=== PATIENT | male | born 2000 | race Caucasian/White ===

== ENCOUNTER 2021-09-23 20:05 | Emergency (ER) | payer BC, SELFPAY ==
--- NOTE | ~2021-09-23 | CT_ITS ---
EXAMINATION: CT facial & cervical spine wo DATE: 09/23/2021 20:46 INDICATION: Facial and neck trauma TECHNIQUE: Computed tomography (CT) of the maxillofacial region and cervical spine was performed with out intravenous contrast. The dose-length product was 383.13 mGy-cm. Automated exposure control and i terative reconstruction technique were employed. COMPARISON: None FINDINGS: MAXILLOFACIAL CT: No acute maxillofacial fractures. Orbits intact. Zygomatic arches, pterygoid plates, maxilla and landon ible are within normal limits. Temporal mandibular joints are symmetric. No evidence for orbital blow out fracture. CERVICAL SPINE CT: Craniovertebral junction within normal limits. No evidence for perched facet. Odontoid process is nor mal. Vertebral body heights are maintained. Normal cervical alignment. IMPRESSION: 1. No acute abnormality of the facial bones or cervical spine. Reviewed, dictated and finalized at location A.
--- NOTE | ~2021-09-23 | CT_ITS ---
EXAMINATION: CT BRAIN W/O DATE: 09/23/2021 20:46 INDICATION: Head injury TECHNIQUE: Computed tomography (CT) of the head was performed without intravenous contrast. The dose- length product was 605.33 mGy-cm. Automated exposure control and iterative reconstruction technique w ere employed. COMPARISON: CT dated 08/01/2008 FINDINGS: Normal brain parenchymal volume for age. Normal noel-white differentiation. No acute intrac ranial hemorrhage, infarction, mass or mass effect. No ventriculomegaly or midline shift. Midline sagittal images demonstrate a normal corpus callosum, c raniovertebral junction and sella turcica. Basilar cisterns are patent. Paranasal sinuses and mastoids are pneumatized. No depressed skull fractures. There is a left frontal scalp laceration. IMPRESSION: 1. No acute intracranial abnormality. Reviewed, dictated and finalized at location A.
[2021-09-23 20:08] VITALS: BP 148/89; PULSE 95; RESP 17; TEMP 36.3; O2SAT 100
--- NOTE | 2021-09-23 20:19 | ED.WOUNDLAC ---
HPI - Wound/Laceration General Chief Complaint: Wound/Laceration Stated Complaint: lac to head Time Seen by Provider: 09/23/21 20:07 History of Present Illness HPI narrative: 21-year-old male presents the emergency room for evaluation of a laceration to the forehead. Patient states that he jumped into a [place] and struck his head on a rock. Denies any altered mental status or loss of consciousness. Patient is alert and oriented x4 presently. Denies neck pain. Denies any other injuries. Related Data Allergies Allergy/AdvReac Type Severity Reaction Status Date / Time No Known Allergies Allergy Verified 09/23/21 20:12 Review of Systems Review of Systems: CONSTITUTIONAL: Denies fever, chills, or sweats. EYES: Denies visual changes, redness, or discharge. ENT: Denies rhinorrhea, congestion, sore throat, or otalgia. CARDIOVASCULAR: Denies chest pain, palpitations, or edema. RESPIRATORY: Denies cough or dyspnea. GASTROINTESTINAL: Denies abdominal pain, nausea, vomiting, or diarrhea. GENITOURINARY: Denies dysuria or hematuria. SKIN: Reports laceration to forehead. MUSCULOSKELETAL: Denies back pain, joint pain, or myalgia. NEUROLOGIC: Denies headache, numbness, dizziness, or weakness. PSYCHIATRIC: Denies anxiety or depression. Exam Narrative: GENERAL: Well-appearing, well-nourished, no physical limitations, and in no acute distress. HEAD: Normocephalic, atraumatic. EYES: Conjunctivae normal, PERRLA and EOMI. NECK: Supple. No meningeal signs. No adenopathy or masses. No carotid bruits or JVD CHEST: Clear to auscultation. No respiratory distress. No wheezes rales or rhonchi. No tenderness. HEART: Regular rate and rhythm. No murmur heard. Normal peripheral pulses. BACK: No CVA tenderness; No cervical/thoracic/lumbar tenderness, step-offs, bony abnormality; FROM EXTREMITIES: Normal range of motion. No edema. No clubbing or cyanosis SKIN: 3.5 centimeter linear laceration to left side of the forehead NEURO: No focal deficits. Alert and oriented x3. MAEW. CN's II-XI intact bilaterally, normal gait PSYCH: Cooperative. Normal mood and affect. Course Vital Signs Vital signs: Vital Signs Temperature 36.3 C L 09/23/21 20:08 Pulse Rate 95 09/23/21 20:08 Respiratory Rate 17 09/23/21 20:08 Blood Pressure 148/89 H 09/23/21 20:08 Pulse Oximetry 100 09/23/21 20:08 Oxygen Delivery Room Air 09/23/21 20:08 Temperature 36.3 C L 09/23/21 20:08 Pulse Rate 95 09/23/21 20:08 Respiratory Rate 17 09/23/21 20:08 Blood Pressure 148/89 H 09/23/21 20:08 Pulse Oximetry 100 09/23/21 20:08 Oxygen Delivery Room Air 09/23/21 20:08 Procedures Laceration Laceration 1: Date: 09/23/21 Time: 21:23 Site: scalp Side (If applicable): left Size (cm): 5 Description: linear Depth: simple, single layer Local Anesthetic: lidocaine 1% and with epi Amount of anesthesia used (mL): 7 Pre-repair: irrigated ====== Skin Level ====== Skin layer closed with: nylon Size (cm): 6-0 Number of sutures: 7 Technique: simple, interrupted ====== Subcutaneous Layer ====== ====== Muscle Layer ====== ====== Tendon Layer ====== MDM - Wound/Laceration Imaging Data Radiologist's impression: Impressions Head CT 09/23/21 20:47 IMPRESSION: 1. No acute intracranial abnormality. Head/Cervical Spine/Facial Bones CT 09/23/21 20:51 IMPRESSION: 1. No acute abnormality of the facial bones or cervical spine. Discharge Plan Discharge Clinical Impression: Laceration, Head injury Patient Disposition: Home, Self-Care Condition: Stable Instructions: Antibiotic Form, Laceration (ED) Additional Instructions: Tylenol and ibuprofen as needed for pain. Keep wound clean and dry. Stitches come out in 7 days. Monitor for signs of infection which include redness, swelling, tenderness, purulent drainage
== END 2021-09-23 21:43 | disposition home or self-care (01) ==
PROVIDERS: Emergency Provider Nurse Practitioner Family
DX: S01.81XA Laceration without foreign body of other part of head, initial encounter (principal); W16.622A Jumping or diving into natural body of water striking bottom causing other injury, initial encounter
CPT/HCPCS: 12002; 12013; 70450; 70486; 72125; 99284

== ENCOUNTER 2022-08-27 16:32 | Emergency (ER) | payer BC, SELFPAY ==
--- NOTE | 2022-08-27 16:34 | ED.SKABFB ---
HPI - Skin/Abscess/Foreign Bdy General Chief complaint: Skin/Abscess/Foreign Body Stated complaint: Poison rachel Time Seen by Provider: 08/27/22 16:34 Source: patient Mode of arrival: ambulatory Limitations: no limitations History of Present Illness HPI narrative: Alonso is a 22-year-old female patient presenting to the clinic today with complaints of possible poison rachel. States his best friend has the similar rash and was diagnosed with poison rachel. Reports he was out in the weeds over the weekend. Has a itchy blistering red rash to bilateral arms, right side of his face, bilateral legs, and chest Related Data Allergies Allergy/AdvReac Type Severity Reaction Status Date / Time No Known Allergies Allergy Verified 08/27/22 16:42 Review of Systems Review of Systems: Pertinent positives per HPI. Patient denies any fever, chills, headache, visual changes, dizziness, cough, runny nose, sore throat, shortness of breath, chest pain, palpitations, nausea, vomiting, diarrhea, constipation, abdominal pain, or any urinary issues. PMFSH Comments At the time of my signature, I reviewed and agree with the nursing past medical, surgical, social, and family history. There is no relevant family history pertinent to the patient complaint. Exam Narrative: General: Well-developed, well nourished, in no apparent distress Head: Normocephalic, atraumatic. Cardio: Regular rate and rhythm, s1 and s2 normal, no murmur appreciated. Resp: Clear to auscultation bilaterally, no rhonchi, rales, wheezing or rubs. Integumentary: [place], warm, and dry, intact without lesion, red raised blistery itchy rash to the bilateral arms, right side of his cheek, bilateral legs, and chest Course Course Emergency Course: Portions of this record may have been created with voice recognition software. Level of Care: Express Care Visit Vital Signs Vital signs: Vital Signs Temperature 37.1 C 08/27/22 16:42 Pulse Rate 75 08/27/22 16:42 Respiratory Rate 16 08/27/22 16:42 Blood Pressure 138/67 08/27/22 16:42 Pulse Oximetry 100 08/27/22 16:42 Oxygen Delivery Room Air 08/27/22 16:42 Temperature 37.1 C 08/27/22 16:42 Pulse Rate 75 08/27/22 16:42 Respiratory Rate 16 08/27/22 16:42 Blood Pressure 138/67 08/27/22 16:42 Pulse Oximetry 100 08/27/22 16:42 Oxygen Delivery Room Air 08/27/22 16:42 Vital signs reviewed MDM - Skin/Abscess/Foreign Bdy MDM Narrative Medical decision making narrative: At the time of visit patient is resting comfortably on the exam table. I suspect patient has poison rachel dermatitis. Prescription for prednisone and triamcinolone cream was sent to pharmacy. Dexamethasone 10 mg IM given in the clinic today. Supportive measures were discussed with the patient he voiced understanding discharge instructions agrees to treatment plan. Differential Diagnosis Differential diagnosis: Likely abscess of skin or subcutaneous tissue, urticaria, allergic reaction to drug, cellulitis, eczema, insect bites and contact dermatitis Discharge Plan Discharge Clinical Impression: Allergic contact dermatitis due to plant Patient Disposition: Home, Self-Care Condition: Stable Instructions: Antibiotic Form, Poison Rachel (ED) Additional Instructions: Dexamethasone 10 mg IM given in the clinic today Apply triamcinolone cream as directed Take prednisone as directed-start on August 28, 2022 Avoid hot showers May apply calamine lotion to rash Avoid scratching and this causes rash to spread May take benadryl 25-50mg every 6 hours as needed for itching. Follow up with your PCP in 3-5 days if symptoms persist or sooner if they worsen Go to the Emergency Room if symptoms worsen- fever, rash spreading with treatment, shortness of breath, tongue swelling, drooling, or chest pain Prescriptions: New prednisone 20 mg tablet 40 mg PO DAILY 5 Days Qty: 10 0RF triamcinolone acetonide 0.1 % cre
[2022-08-27 16:42] VITALS: BP 138/67; PULSE 75; RESP 16; TEMP 37.1; O2SAT 100
== END 2022-08-27 17:05 | disposition home or self-care (01) ==
PROVIDERS: Emergency Provider Nurse Practitioner Family
DX: L23.7 Allergic contact dermatitis due to plants, except food (principal); J45.990 Exercise induced bronchospasm
CPT/HCPCS: 96372; 99213; G0463; J1100